=== PATIENT | female | born 1945 | race Caucasian/White ===

== ENCOUNTER 2020-05-19 17:27 | Outpatient (REF) | payer MEDICARE, SELFPAY | END 2020-05-19 17:28 | disposition home or self-care (01) | LOC: HO.LAB 17:27 | PROVIDERS: PCP Internal Medicine; Visit Provider Internal Medicine | DX: Z20.828 Contact with and (suspected) exposure to other viral communicable diseases (principal) | CPT/HCPCS: 36415; 87635 ==

== ENCOUNTER 2020-09-10 10:33 | Outpatient (REF) | payer MEDICARE, SELFPAY ==
--- NOTE | 2020-09-10 | MM_ITS ---
EXAMINATION: BONE DENSITOMETRY CLINICAL INDICATION: Age-related osteoporosis without current pathological fracture. COMPARISON: Previous BD dated 11/27/2015 and baseline BD dated 08/12/2005. TECHNIQUE: Using a [employer] DXA System (software version: 13.1) manufactured by [employer], dual-energy x-ray absorptiometry was performed of the lumbar spine and left hip. The images are of good technical quality. Summary results are attached. FINDINGS: AP SPINE L1-L4 (excluding L3): The data of L1-L4 has been changed to exclude the L3 vertebral body, because degenerative changes at this level may cause overestimation of lumbar spine density. Current: BMD 1.318 g/cm2, Z-score 3.0, T-score 1.2, normal, 2.9% increase from previous, 10.1% increase from baseline (<5% change is not significant). Prior: BMD 1.281 g/cm2. Baseline: BMD 1.197 g/cm2. LEFT FEMUR, NECK: Current: BMD 0.827 g/cm2, Z-score 0.3, T-score -1.5, osteopenia. Prior: BMD 0.841 g/cm2. Baseline: BMD 0.892 g/cm2. LEFT FEMUR, TOTAL: Current: BMD 0.932 g/cm2, Z-score 1.0, T-score -0.6, normal, 0.6% decrease from previous, 3.5% decrease from baseline (<5% change is not significant). Prior: BMD 0.938 g/cm2. Baseline: BMD 0.966 g/cm2. IDENTIFIED RISK FACTORS: Menopause. HISTORY OF FRACTURE: None listed. MEDICATIONS: Vitamin D. MM/XR DEXA axial skeleton IMPRESSION: 1. DIAGNOSIS: Osteopenia based on the lowest T-score value of -1.5 in the femoral neck applying World Health Organization criteria. 2. 10-YEAR FRACTURE RISK PREDICTION, FRAX: Major osteoporotic fracture (clinical spine, forearm, hip or shoulder) 10.9%. Hip fracture 1.9%. 3. Treatment Recommendations: NOF guidelines recommend consideration for treatment in postmenopausal women and men age 50 and older presenting with the following: -A hip or vertebral (clinical or morphometric) fracture. -T-score less than or equal to -2.5 at the femoral neck or spine after appropriate evaluation to exclude secondary causes. -Low bone mass at the hip or spine and a 10-year fracture probability by FRAX of greater than or equal to 3% for hip fracture or greater than or equal to 20% for major osteoporotic fracture based on the [place] adapted WHO algorithm. 4. Other Recommendations: All treatment decisions require clinical judgment and consideration of individual patient factors, including patient preferences, comorbidities, previous drug use, risk factors not captured in the FRAX model (e.g. frailty, falls, vitamin D deficiency, increased bone turnover, interval significant decline in bone density) and possible under or overestimation of fracture risk by FRAX. Additional medical evaluation for secondary cause of low bone mineral density may be appropriate. FUTURE SCAN RECOMMENDATION: People with diagnosed cases of osteoporosis or at high risk for fracture should have regular bone mineral density tests. For patients eligible for Medicare, routine testing is allowed once every 2 years. The testing frequency can be increased to one year for patients who have rapidly progressing disease, those who are receiving or discontinuing medical therapy to restore bone mass, or have additional risk factors.
--- NOTE | 2020-09-10 | MM_ITS ---
EXAMINATION: MM SCREENING DIGITAL BREAST TOMOSYNTHESIS, BILATERAL CLINICAL INFORMATION: Screening. Asymptomatic. The lifetime risk of breast cancer based on the Tyrer-Cuzick Model is 4%. COMPARISON: Mammography: 07/25/2019, 07/07/2018, 06/07/2017 TECHNIQUE: Digital breast tomosynthesis is performed in both the craniocaudal and mediolateral oblique views along with computer-aided detection (CAD). Synthesized 2D images are generated from the tomosynthesis. FINDINGS: The breasts are heterogeneously dense, which may obscure small masses (ACR BI-RADS breast composition Category c). There are no significant masses, abnormal calcifications, or other abnormalities. Parenchymal pattern is similar to prior exam. No significant changes. MM/MM tomosynthesis screening BI IMPRESSION: No mammographic evidence of malignancy. ASSESSMENT: BI-RADS 1: Negative RECOMMENDATION: Routine annual mammography screening. This patient's information was entered into a reminder system with a target due date for their next mammogram.
== END 2020-09-10 10:34 | disposition home or self-care (01) ==
LOC: HO.MAMMO 10:33
PROVIDERS: Visit Provider Internal Medicine
DX: Z13.820 Encounter for screening for osteoporosis (principal); Z78.0 Asymptomatic menopausal state; Z79.899 Other long term (current) drug therapy; Z12.31 Encounter for screening mammogram for malignant neoplasm of breast
CPT/HCPCS: 77063; 77067; 77080

== ENCOUNTER 2021-09-17 07:43 | Outpatient (REF) | payer MEDICARE, SELFPAY ==
--- NOTE | ~2021-09-17 | MM_ITS ---
EXAMINATION: MM SCREENING DIGITAL BREAST TOMOSYNTHESIS, BILATERAL CLINICAL INFORMATION: Screening. Asymptomatic. The lifetime risk of breast cancer based on the Tyrer-Cuzick Model is 2.4%. COMPARISON: Mammography: 09/10/2020 and studies dating back to 03/08/2014 TECHNIQUE: Digital breast tomosynthesis is performed in both the craniocaudal and mediolateral oblique views along with computer-aided detection (CAD). Synthesized 2D images are generated from the tomosynthesis. FINDINGS: The breasts are heterogeneously dense, which may obscure small masses (ACR BI-RADS breast composition Category c). There is a stable parenchymal pattern of the left breast with some retroareolar ductal prominence. No new abnormal dominant mass or suspicious grouping of microcalcifications within the left breast are identified. Within the inferior retroareolar region of the right breast seen only on mediolateral oblique projection there is a region of increased density more prominent than on prior examinations measuring approximately 1.6 x 1.4 cm in size which spot compression view and possible ultrasound is recommended. MM/MM tomosynthesis screening BI IMPRESSION: Right breast anterior density for further evaluation as described above. ASSESSMENT: BI-RADS 0: Incomplete - Need Additional Imaging Evaluation RECOMMENDATION: 1. Additional views of the right breast. 2. Targeted ultrasound if warranted after review of the additional views. 3. Radiology department staff will contact the patient for additional imaging.
== END 2021-09-17 07:44 | disposition home or self-care (01) ==
LOC: HO.MAMMO 07:43
PROVIDERS: PCP Internal Medicine; Visit Provider Internal Medicine
DX: Z12.31 Encounter for screening mammogram for malignant neoplasm of breast (principal)
CPT/HCPCS: 77063; 77067

== ENCOUNTER 2021-10-07 14:03 | Outpatient (REF) | payer MEDICARE, SELFPAY ==
--- NOTE | ~2021-10-07 | MM_ITS ---
EXAMINATION: MM DIAGNOSTIC DIGITAL BREAST TOMOSYNTHESIS, RIGHT CLINICAL INFORMATION: Recall from screening for increased parenchymal attenuation anterior right breast limited to MLO view. COMPARISON: Mammography: 09/17/2021, 09/10/2020, 07/25/2019, 07/07/2018, 06/07/2017, 05/24/2016. TECHNIQUE: Digital breast tomosynthesis is performed. 2D images are generated from the tomosynthesis. The following views are obtained: Spot MLO, standard ML, spot ML. FINDINGS: The breasts are heterogeneously dense, which may obscure small masses (ACR BI-RADS breast composition Category c). The additional views show fibroglandular densities with mixture of glandular and fatty tissue composition in the area of interest. The pattern is similar to prior exams dating back to 2016. There is no developing density or interval mass or architectural abnormality. Additional, there is no correlate on screening CC view. Finding on recent MLO view is consistent with summation artifact. Results are discussed with the patient at time of visit. MM/MM tomosynthesis added views R IMPRESSION: Additional views show no significant changes from prior studies. ASSESSMENT: BI-RADS 2: Benign RECOMMENDATION: Routine annual mammography screening. This patient's information was entered into a reminder system with a target due date for their next mammogram.
== END 2021-10-07 14:04 | disposition home or self-care (01) ==
LOC: HO.MAMMO 14:03
PROVIDERS: PCP Internal Medicine; Visit Provider Internal Medicine
DX: R92.2 Inconclusive mammogram (principal)
CPT/HCPCS: 77061; 77065

== ENCOUNTER 2022-09-24 07:26 | Outpatient (REF) | payer MEDICARE, SELFPAY ==
--- NOTE | ~2022-09-24 | MM_ITS ---
EXAMINATION: MM SCREENING DIGITAL BREAST TOMOSYNTHESIS, BILATERAL CLINICAL INFORMATION: Screening. Asymptomatic. Inspire implant on right for sleep apnea. The lifetime risk of breast cancer based on the Tyrer-Cuzick Model is 4%. COMPARISON: Mammography: 10/07/2021, 09/17/2021, 09/10/2020, 07/25/2019 TECHNIQUE: Digital breast tomosynthesis is performed in both the craniocaudal and mediolateral oblique views along with computer-aided detection (CAD). Synthesized 2D images are generated from the tomosynthesis. FINDINGS: The breasts are heterogeneously dense, which may obscure small masses (ACR BI-RADS breast composition Category c). There are no significant masses, abnormal calcifications, or other abnormalities. Breast tissue composition borders on average fibroglandular. No developing density or architectural abnormality. There is a generator device overlying the posterior upper right breast consistent with the clinical history. MM/MM tomosynthesis screening BI IMPRESSION: No mammographic evidence of malignancy. ASSESSMENT: BI-RADS 1: Negative RECOMMENDATION: Routine annual mammography screening. This patient's information was entered into a reminder system with a target due date for their next mammogram.
== END 2022-09-24 07:27 | disposition home or self-care (01) ==
LOC: HO.MAMMO 07:26
PROVIDERS: PCP Internal Medicine; Visit Provider Internal Medicine
DX: Z12.31 Encounter for screening mammogram for malignant neoplasm of breast (principal)
CPT/HCPCS: 77063; 77067

== ENCOUNTER 2023-09-28 13:19 | Outpatient (REF) | payer MEDICARE, SELFPAY ==
--- NOTE | ~2023-09-28 | MM_ITS ---
EXAMINATION: MM SCREENING DIGITAL BREAST TOMOSYNTHESIS, BILATERAL CLINICAL INFORMATION: Screening. Asymptomatic. COMPARISON: Mammography: This study is compared with prior exams dating back to 2018. TECHNIQUE: Digital breast tomosynthesis is performed in both the craniocaudal and mediolateral oblique views along with computer-aided detection (CAD). Synthesized 2D images are generated from the tomosynthesis. FINDINGS: The breasts are heterogeneously dense, which may obscure small masses (ACR BI-RADS breast composition Category c). There is a pacemaker in the superior aspect of the right breast. There are no significant masses, abnormal calcifications, or other abnormalities. MM/MM tomosynthesis screening BI IMPRESSION: No mammographic evidence of malignancy. ASSESSMENT: BI-RADS BI-RADS 1 - Negative RECOMMENDATION: Routine annual mammography screening. 1 year F/U This examination should not preclude the clinical evaluation of a suspicious palpable abnormality. This patient's information was entered into a reminder system with a target due date for their next mammogram.
== END 2023-09-28 13:20 | disposition home or self-care (01) ==
LOC: HO.MAMMO 13:19
PROVIDERS: PCP Internal Medicine; Visit Provider Internal Medicine
DX: Z12.31 Encounter for screening mammogram for malignant neoplasm of breast (principal)
CPT/HCPCS: 77063; 77067

== ENCOUNTER → 2023-09-28 13:30 | Outpatient (BNV) | payer MEDICARE, SELFPAY | PROVIDERS: PCP Internal Medicine; Visit Provider Radiology Diagnostic Radiology | DX: Z12.31 Encounter for screening mammogram for malignant neoplasm of breast (principal) | CPT/HCPCS: 77063; 77067 ==

== ENCOUNTER 2024-10-02 08:24 | Outpatient (REF) | payer MEDICARE, SELFPAY ==
--- OUTSIDE RECORDS SUMMARY | 2024-10-02 08:39 | XMS_ITS | Clinical Summary ---
Author Organization [facility] Address [address] [address] Phone Care Team Providers Care Strategic Planner Name Role Phone Emilio Crum MD Primary Care Provider Allergies Active Allergy Reactions Criticality Noted Date Comments Meperidine 09/15/2021 Other reaction(s): severe vomitting Meperidine Hcl 06/15/2022 Metformin Other (see comments) 01/24/2023 Medications PARoxetine (PAXIL) 10 MG tablet Take 10 mg by mouth 1 (one) time each day 1 Active levothyroxine (SYNTHROID, LEVOTHROID) 50 MCG tablet Take 50 mcg by mouth 1 (one) time each day 2 Active Estring 2 MG vaginal ring INSERT ONE RING VAGINALLY FOR 90 DAYS 1 Active omeprazole (PriLOSEC) [address] capsule Take 20 mg by mouth if needed Do not crush or chew. 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 Hiatal hernia with gastroesophageal reflux 08/18 Hypothyroidism 08/18/2022 Non-toxic multinodular goiter 08/18/2022 Obstructive sleep apnea syndrome 08/18/2022 Prediabetes 08/18/2022 Pulmonary fibrosis 08/18/2022 Hypertension 12/15/2021 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 09/17/2021 Essential (primary) hypertension 09/15/2021 Family History Medical History Relation Comments Hypertension Mother Kidney disease Nephew Kidney Transplan t Diabetes Paternal Grandmother Relation Status Comments Mother Nephew Alive Paternal Grandmother Social History Tobacco Use Types Packs/Day Years Used Date Smoking Tobacco: Never Smokeless Tobacco: Never Tobacco Cessation:Counseling Given: Not Answered Alcohol Use Standard Drinks/Week Comments Yes 0 (1 standard drink = 0.6 oz pur e alcohol) Comments Unknown Sex and Gender Information Value Date Recorded Sex Assigned at Not on file Legal Sex Female 10:03 AM EST Gender Identity Not on file Sexual Orientation Not on file Last Filed Vital Signs Vital Sign Reading Time Taken Comments Blood Pressure 112/70 01/24/2023 1:16 PM EDT Pulse 76 01/24/2023 1:16 PM EDT Temperature - - Respiratory Rate - - Oxygen Saturation 98% 12/15/2021 3:44 PM EDT Inhaled Oxygen Concentration - - Weight 66.7 kg (147 lb) 01/24/2023 1:16 PM EDT Height - - Body Mass Index - - Plan of Treatment Health Maintenance Due Date Last Done Comments Pneumococcal Vaccine: 65+ Ye ars (1 of 2 - PCV) 10/26/1951 Influenza Vaccine (#1) 2024 Hepatitis B Vaccine Aged Out No longe r eligible based on patient's age to complete this topic Insurance MEDICARE [facility] Member Subscriber Plan / Payer (Ef fective 2021-Present) Name:Gabrielle Carney Relation to Subscriber:Self Name:Gabrielle Carney Payer ID:[id number] (NAIC) Group ID:Not on file Type:Not on file Address: [address] [place] [id number] MEDICARE [facility] Care Teams Strategic Planner Relationship Specialty Start Date End Date Emilio Crum MD [address] [place] [address] PCP - General Internal Medicine 07/28/21
--- OUTSIDE RECORDS SUMMARY | 2024-10-02 08:40 | XMS_ITS | Clinical Summary ---
Author Organization [facility] [address] [facility] Address [address] [place] [address] Phone Care Team Providers Care Correctional Therapy Director Name Role Phone Emilio Crum MD Primary Care Provider [phone] Allergies Active Allergy Reactions Criticality Noted Date Comments Meperidine 07/03/2024 Medications omeprazole (PriLOSEC) [address] capsule Take 1 capsule (20 mg total) by mouth 2 (two) times a day. 06/16/2024 Active Active Problems Problem Noted Date Diagnosed Date Gastroesophageal reflux disease without esophagi tis 07/03/2024 Encounters Date Type Department Care Team Description 07/03/2024 10:40 AM EST Office Visit Gastroenterology - [address] [place] [id number] Yolanda Romero NP Gastroesophageal reflux disease, unspecified whether esophagitis present (Primary Dx) from Last 3 Months Social History Tobacco Use Types Packs/Day Years Used Date Smoking Tobacco: Never Assessed Comments Unknown Sex and Gender Information Value Date Recorded Sex Assigned at Not on file Legal Sex Female 4:37 PM EST Gender Identity Not on file Sexual Orientation Not on file Last Filed Vital Signs Vital Sign Reading Time Taken Comments Blood Pressure - - Pulse - - Temperature - - Respiratory Rate - - Oxygen Saturation - - Inhaled Oxygen Concentration - - Weight 64.4 kg (142 lb) 07/03/2024 10:46 AM EST Height 154.9 cm (5' 1 ) 07/03/2024 10:46 AM EST Body Mass Index 26.83 07/03/2024 10:46 AM EST Plan of Treatment Health Maintenance Due Date Last Done Comments Zoster Vaccines (2 of 2) 03/11/2022 01/14/2022 Cholesterol Screening (Lipid Panel) 07/14/2022 Depression Screening 07/14/2022 Falls Risk Assessment 07/14/2022 Hepatitis C Screening 07/14/2022 Medicare Annual Wellness Visit 07/14/2022 Osteoporosis Screening (Bone Density Screening) 07/14/2022 Social Influencers of Health Screening 07/14/2022 RSV Immunization Patients 60+ Years Old (1 - 1-dose 75+ series) 10/26/2022 COVID-19 Vaccine ( - season) 2024 07/23/2022, 07/01/2021, 11/19/2020, Additional history exists Hypertension/CHF/CAD Annual BMP Blood Test 07/03/2024 DTaP,Tdap,and Td Vaccines (2 - Td or Tdap) 03/17/2030 03/17/2020 Pneumococcal Vaccine: 50+ Years Completed 05/19/2021, 10/25/2019 Influenza Vaccine Completed 05/02/2024, , 07/01/2021, Additional history exists HIB Vaccines Aged Out No longer eligi ble based on patient's age to complete this topic HPV Vaccines Aged Out No longer eligi ble based on patient's age to complete this topic Hepatitis A Vaccines Aged Out No long er eligible based on patient's age to complete this topic Hepatitis B Vaccines Aged Out No long er eligible based on patient's age to complete this topic IPV Vaccines Aged Out No longer eligi ble based on patient's age to complete this topic MMR Vaccines Aged Out No longer eligi ble based on patient's age to complete this topic Meningococcal ACWY Vaccine Aged Out N o longer eligible based on patient's age to complete this topic Meningococcal B Vacine Aged Out No lo nger eligible based on patient's age to complete this topic RSV Immunization Patients Under 20 months Aged Out No longer eligible based on patient's age to complete this topic Varicella Vaccines Aged Out No longer eligible based on patient's age to complete this topic Insurance MEDICARE [employer] Care Teams Correctional Therapy Director Relationship Specialty Start Date End Date Emilio Crum MD [address] [place] [address] PCP - General Internal Medicine 06/21/24
--- OUTSIDE RECORDS SUMMARY | 2024-10-02 08:40 | XMS_ITS | Encounter Summary ---
Author Organization [facility] Address [address] [facility] [address] [place] [address] Phone Care Team Providers Care Editor Index Name Role Phone Emilio Crum MD Primary Care Provider [phone] Encounter Details Date Type Department Care Team (Late st Contact Info) Description 10/05/2021 Documentation Only [facility] [address] [facility] [address] [place] [address] Maximilian Ludwig MD Social History Tobacco Use Types Packs/Day Years Used Date Smoking Tobacco: Never Smokeless Tobacco: Never Alcohol Use Standard Drinks/Week Comments Yes 0 (1 standard drink = 0.6 oz pur e alcohol) Comments Unknown Sex and Gender Information Value Date Recorded Sex Assigned at Not on file Legal Sex Female 10:03 AM EST Gender Identity Not on file Sexual Orientation Not on file COVID-19 Exposure Response Date Recorded In the last month, have you been in contact with someone who was confirmed or suspected to have Coronavirus / COVID-19? No / Unsure 09/29/2021 11:32 AM EST documented as of this encounter Plan of Treatment Not on file documented as of this encounter Visit Diagnoses Not on filedocumented in this encounter Care Teams Editor Index Relationship Specialty Start Date End Date Emilio Crum MD [address] [place] [address] PCP - General Internal Medicine 07/28/21 documented as of this encounter
== END 2024-10-02 08:25 | disposition home or self-care (01) ==
LOC: HO.MAMMO 08:24
PROVIDERS: PCP Internal Medicine; Visit Provider Internal Medicine
DX: Z12.31 Encounter for screening mammogram for malignant neoplasm of breast (principal)
CPT/HCPCS: 77063; 77067

== ENCOUNTER → 2024-10-02 08:30 | Outpatient (BNV) | payer MEDICARE, SELFPAY | PROVIDERS: PCP Internal Medicine; Visit Provider Internal Medicine | DX: Z12.31 Encounter for screening mammogram for malignant neoplasm of breast (principal) | CPT/HCPCS: 77063; 77067 ==